=== PATIENT | female | born 1985 | race Caucasian/White ===

== ENCOUNTER 2021-01-10 10:37 | Inpatient (IN) | payer OTHER ==
[2021-01-10] MEDS ORDERED: ACETAMINOPHEN 1000 MG/100 ML VIAL (NON FORMULARY) IVPB ONE (11:48)
[2021-01-10] MEDS ORDERED: SODIUM CHLORIDE 0.9% 1000 ML INFUS.BAG IV ONE ×2 (11:48→13:56)
[2021-01-10 12:24] LABS: BASO % 0.5 % (0-2.0); HEMATOCRIT 37.9 % (32.4-45.2); HEMOGLOBIN 13.1 GM/dL (10.7-15.3); LYMPH % 3.2 % (8-40); MCHC 34.4 g/dl (32.0-36.0); MEAN CELL VOLUME 84.3 fl (80-96); MEAN PLT VOLUME 8.4 fl (7.5-11.1); MONO % 4.3 % (3.8-10.2); PLATELET COUNT 269 K/MM3 (134-434); RDW 13.3 % (11.6-15.6); WHITE BLOOD COUNT 24.4 K/mm3 (4.0-10.0)
[2021-01-10 12:27] LABS: EPI CELLS 25 /uL (0-25.1); HYALINE CASTS 6 /uL (0-3.1); PH,URINE 7.5 (5.0-8.0); URINE APPEARANCE CLOUDY; URINE BACTERIA >9,000 /uL (0-1359); URINE BILIRUBIN NEGATIVE (NEGATIVE); URINE COLOR YELLOW; URINE GLUCOSE (UA) NEGATIVE (NEGATIVE); URINE KETONE TRACE (NEGATIVE); URINE LEUK ESTERASE NEGATIVE (NEGATIVE); URINE NITRITE POSITIVE (NEGATIVE); URINE PROTEIN 2+ (NEGATIVE); URINE RBC 180 /uL (0-23.9); URINE UROBILINOGEN 0.2 mg/dL (0.2-1.0)
[2021-01-10 12:37] LABS: INR 1.03 (0.83-1.09); PROTHROMBIN TIME (PATIENT) 12.5 SEC (9.7-13.0)
[2021-01-10 12:40] LABS: ACTIVATED PTT 30.7 SECONDS (25.2-36.5)
[2021-01-10 12:44] LABS: ALBUMIN 3.6 g/dl (3.4-5.0); CALCIUM 9.4 mg/dL (8.5-10.1)
[2021-01-10 12:45] LABS: BLOOD UREA NITROGEN 10.8 mg/dL (7-18)
[2021-01-10 12:48] LABS: CREATININE 0.9 mg/dL (0.55-1.3)
[2021-01-10 12:49] LABS: BILIRUBIN,TOTAL 0.7 mg/dL (0.2-1); TOT PROT 7.5 g/dl (6.4-8.2)
[2021-01-10] MEDS ORDERED: ACETAMINOPHEN INJECTION 100 ML IVPB ONE (13:26)
[2021-01-10 13:31] LABS: URINE WBC 668.8 /uL (0-25.8)
[2021-01-10] MEDS ORDERED: CEFTRIAXONE 1,000 MG in DEXTROSE 5%-WATER - 50 ML IVPB ONE (13:47)
[2021-01-10] MEDS ORDERED: CEFTRIAXONE 1 GM/50 ML BAG ONE (15:02)
[2021-01-10 15:51] LABS: ANISOCYTOSIS 0; MACROCYTOSIS 0; PLATELET ESTIMATE NORMAL
[2021-01-10 18:57] LABS: LACTIC ACID 2.2 mmol/L (0.4-2.0)
[2021-01-10] MEDS: SODIUM CHLORIDE 1,000 ML IV SCH (20:15)
[2021-01-11] MEDS: HEPARIN NA (PORCINE) 5,000 UNITS/ML 1ML VIAL SQ SCH ×3 (01:15→14:25)
[2021-01-11 08:43] LABS: BASO % 0.2 % (0-2.0); HEMATOCRIT 36.5 % (32.4-45.2); HEMOGLOBIN 12.6 GM/dL (10.7-15.3); LYMPH % 7.4 % (8-40); MCHC 34.5 g/dl (32.0-36.0); MEAN CELL VOLUME 84.1 fl (80-96); MEAN PLT VOLUME 8.4 fl (7.5-11.1); MONO % 5.2 % (3.8-10.2); NEUT % 87.2 % (42.8-82.8); PLATELET COUNT 262 K/MM3 (134-434); RBC 4.33 M/mm3 (3.60-5.2); WHITE BLOOD COUNT 20.8 K/mm3 (4.0-10.0)
[2021-01-11 08:58] LABS: ALBUMIN 3.4 g/dl (3.4-5.0); BLOOD UREA NITROGEN 10.5 mg/dL (7-18); CALCIUM 8.6 mg/dL (8.5-10.1); MAGNESIUM 2.1 mg/dL (1.8-2.4)
[2021-01-11 09:02] LABS: CREATININE 0.6 mg/dL (0.55-1.3); PHOSPHOROUS 2.4 mg/dL (2.5-4.9)
[2021-01-11 09:03] LABS: BILIRUBIN,TOTAL 0.4 mg/dL (0.2-1); TOT PROT 7.1 g/dl (6.4-8.2)
[2021-01-11] MEDS ORDERED: cefTRIAXone SODIUM 1 GM VIAL ONE (09:42)
[2021-01-11] MEDS ORDERED: DEXTROSE 5%-WATER - 50 ML IVPB ONE (09:42)
[2021-01-11] MEDS ORDERED: LOSARTAN POTASSIUM 25 MG TABLET PO SCH (10:00)
[2021-01-11] MEDS: CEFTRIAXONE 1 GM in DEXTROSE 5%-WATER - 50 ML IVPB SCH (10:06)
[2021-01-11] MEDS: INSULIN SLIDING SCALE (NOVOLOG) 1 VIAL SQ SCH ×3 (11:36→21:21)
[2021-01-11 11:39] LABS: ANISOCYTOSIS 0; MACROCYTOSIS 0; PLATELET ESTIMATE NORMAL
[2021-01-11] MEDS: SODIUM CHLORIDE 1,000 ML IV SCH ×2 (14:26→16:17)
[2021-01-11] MEDS ORDERED: INSULIN (NOVOLOG) ASPART 100 UNITS/ML 10ML VIAL ONE (21:02)
[2021-01-12] MEDS: INSULIN SLIDING SCALE (NOVOLOG) 1 VIAL SQ SCH ×4 (06:08→21:20)
[2021-01-12] MEDS ORDERED: TAMSULOSIN HCL 0.4 MG CAP PO SCH (08:30)
[2021-01-12] MEDS: INSULIN (LEVEMIR) 100 UNITS/ML UNITS SQ SCH ×2 (08:43→21:16)
[2021-01-12] MEDS: TAMSULOSIN HCL 0.4 MG CAP PO SCH (08:44)
[2021-01-12 09:06] LABS: HEMATOCRIT 35.1 % (32.4-45.2); HEMOGLOBIN 12.2 GM/dL (10.7-15.3); MCH 29.7 pg (25.7-33.7); MCHC 34.6 g/dl (32.0-36.0); MEAN CELL VOLUME 85.9 fl (80-96); MEAN PLT VOLUME 8.4 fl (7.5-11.1); PLATELET COUNT 237 K/MM3 (134-434); RBC 4.09 M/mm3 (3.60-5.2); RDW 13.1 % (11.6-15.6); WHITE BLOOD COUNT 10.7 K/mm3 (4.0-10.0)
[2021-01-12 09:42] LABS: BILIRUBIN,TOTAL 0.2 mg/dL (0.2-1)
[2021-01-12 09:44] LABS: TOT PROT 6.6 g/dl (6.4-8.2)
[2021-01-12 10:07] LABS: CREATININE 0.5 mg/dL (0.55-1.3)
[2021-01-12] MEDS ORDERED: DEXTROSE 5%-WATER - 50 ML IVPB ONE (10:16)
[2021-01-12] MEDS ORDERED: cefTRIAXone SODIUM 1 GM VIAL ONE (10:16)
[2021-01-12 10:24] LABS: BLOOD UREA NITROGEN 10.5 mg/dL (7-18); CALCIUM 8.4 mg/dL (8.5-10.1)
[2021-01-12 10:26] LABS: PHOSPHOROUS 2.4 mg/dL (2.5-4.9)
[2021-01-12 10:28] LABS: MAGNESIUM 2.1 mg/dL (1.8-2.4)
[2021-01-12] MEDS: ENOXAPARIN NA (PORCINE) 40 MG/0.4 ML DISP.SYRIN SQ SCH (10:29)
[2021-01-12] MEDS: LOSARTAN POTASSIUM 50 MG TABLET PO SCH (10:29)
[2021-01-12] MEDS: ATORVASTATIN CA 10 MG TABLET (FP) PO SCH (10:29)
[2021-01-12] MEDS: amLODIPine BESYLATE 10 MG TABLET (FP) PO SCH (10:29)
[2021-01-12] MEDS: CEFTRIAXONE 1 GM in DEXTROSE 5%-WATER - 50 ML IVPB SCH (10:30)
[2021-01-13] MEDS: INSULIN (LEVEMIR) 100 UNITS/ML UNITS SQ SCH ×2 (06:20→21:48)
[2021-01-13] MEDS: INSULIN SLIDING SCALE (NOVOLOG) 1 VIAL SQ SCH ×4 (06:23→21:47)
[2021-01-13] MEDS ORDERED: DEXTROSE 5%-WATER - 50 ML IVPB ONE (09:04)
[2021-01-13] MEDS ORDERED: cefTRIAXone SODIUM 1 GM VIAL ONE (09:04)
[2021-01-13] MEDS: ATORVASTATIN CA 10 MG TABLET (FP) PO SCH (09:09)
[2021-01-13] MEDS: ENOXAPARIN NA (PORCINE) 40 MG/0.4 ML DISP.SYRIN SQ SCH (09:09)
[2021-01-13] MEDS: amLODIPine BESYLATE 10 MG TABLET (FP) PO SCH (09:09)
[2021-01-13] MEDS: CEFTRIAXONE 1 GM in DEXTROSE 5%-WATER - 50 ML IVPB SCH (09:09)
[2021-01-13] MEDS: LOSARTAN POTASSIUM 50 MG TABLET PO SCH (09:09)
[2021-01-13] MEDS: TAMSULOSIN HCL 0.4 MG CAP PO SCH (09:09)
[2021-01-13 09:55] LABS: HEMATOCRIT 42.1 % (32.4-45.2); HEMOGLOBIN 14.4 GM/dL (10.7-15.3); MCHC 34.1 g/dl (32.0-36.0); MEAN CELL VOLUME 84.9 fl (80-96); PLATELET COUNT 324 K/MM3 (134-434); RBC 4.97 M/mm3 (3.60-5.2); RDW 13.2 % (11.6-15.6); WHITE BLOOD COUNT 12.9 K/mm3 (4.0-10.0)
[2021-01-13 10:05] LABS: CALCIUM 9.1 mg/dL (8.5-10.1)
[2021-01-13 10:06] LABS: BLOOD UREA NITROGEN 12.8 mg/dL (7-18); MAGNESIUM 2.1 mg/dL (1.8-2.4)
[2021-01-13 10:09] LABS: PHOSPHOROUS 3.8 mg/dL (2.5-4.9)
[2021-01-13 10:10] LABS: CREATININE 0.8 mg/dL (0.55-1.3)
[2021-01-13] MEDS ORDERED: SODIUM CHLORIDE 1,000 ML IV SCH (11:45)
[2021-01-14] MEDS: INSULIN (LEVEMIR) 100 UNITS/ML UNITS SQ SCH ×2 (06:41→21:29)
[2021-01-14] MEDS: INSULIN SLIDING SCALE (NOVOLOG) 1 VIAL SQ SCH ×4 (06:41→21:30)
[2021-01-14] MEDS: TAMSULOSIN HCL 0.4 MG CAP PO SCH (08:22)
[2021-01-14] MEDS ORDERED: cefTRIAXone SODIUM 1 GM VIAL ONE (09:00)
[2021-01-14] MEDS ORDERED: DEXTROSE 5%-WATER - 50 ML IVPB ONE (09:00)
[2021-01-14 09:15] LABS: HEMATOCRIT 38.9 % (32.4-45.2); HEMOGLOBIN 13.3 GM/dL (10.7-15.3); MCH 28.6 pg (25.7-33.7); MCHC 34.1 g/dl (32.0-36.0); MEAN PLT VOLUME 7.9 fl (7.5-11.1); PLATELET COUNT 307 K/MM3 (134-434); RBC 4.63 M/mm3 (3.60-5.2); RDW 12.9 % (11.6-15.6); WHITE BLOOD COUNT 11.4 K/mm3 (4.0-10.0)
[2021-01-14] MEDS: CEFTRIAXONE 1 GM in DEXTROSE 5%-WATER - 50 ML IVPB SCH (09:22)
[2021-01-14] MEDS: ENOXAPARIN NA (PORCINE) 40 MG/0.4 ML DISP.SYRIN SQ SCH (09:22)
[2021-01-14] MEDS: LOSARTAN POTASSIUM 50 MG TABLET PO SCH (09:22)
[2021-01-14] MEDS: amLODIPine BESYLATE 10 MG TABLET (FP) PO SCH (09:22)
[2021-01-14 09:36] LABS: CALCIUM 8.8 mg/dL (8.5-10.1)
[2021-01-14 09:37] LABS: BLOOD UREA NITROGEN 13.2 mg/dL (7-18)
[2021-01-14 09:38] LABS: MAGNESIUM 1.9 mg/dL (1.8-2.4)
[2021-01-14 09:39] LABS: CREATININE 0.7 mg/dL (0.55-1.3); PHOSPHOROUS 3.5 mg/dL (2.5-4.9)
[2021-01-14] MEDS ORDERED: ACETAMINOPHEN 325 MG TABLET (FP) PO PRN (09:59)
[2021-01-14] MEDS ORDERED: INSULIN (NOVOLOG) ASPART 100 UNITS/ML 10ML VIAL ONE ×2 (11:22→21:03)
[2021-01-14] MEDS ORDERED: ACETAMINOPHEN 1000 MG/100 ML VIAL (NON FORMULARY) IVPB ONE (19:53)
[2021-01-14] MEDS ORDERED: HYDROCHLOROTHIAZIDE 25 MG TABLET (FP) PO ONE (20:12)
[2021-01-14] MEDS ORDERED: ONDANSETRON 4 MG/2 ML VIAL IVPUSH PRN (21:17)
[2021-01-14] MEDS: ATORVASTATIN CA 10 MG TABLET (FP) PO SCH (21:30)
[2021-01-15] MEDS: INSULIN SLIDING SCALE (NOVOLOG) 1 VIAL SQ SCH ×4 (06:20→22:57)
[2021-01-15] MEDS: INSULIN (LEVEMIR) 100 UNITS/ML UNITS SQ SCH ×2 (06:20→22:57)
[2021-01-15] MEDS: TAMSULOSIN HCL 0.4 MG CAP PO SCH (08:02)
[2021-01-15] MEDS ORDERED: ACETAMINOPHEN 325 MG TABLET (FP) PO PRN (08:12)
[2021-01-15] MEDS ORDERED: SODIUM CHLORIDE 1,000 ML IV SCH (08:30)
[2021-01-15 09:27] LABS: BASO % 0.4 % (0-2.0); EOS % 0.9 % (0-4.5); HEMATOCRIT 40.2 % (32.4-45.2); HEMOGLOBIN 13.9 GM/dL (10.7-15.3); LYMPH % 17.9 % (8-40); MCH 29.3 pg (25.7-33.7); MCHC 34.5 g/dl (32.0-36.0); MEAN CELL VOLUME 84.9 fl (80-96); MEAN PLT VOLUME 8.3 fl (7.5-11.1); MONO % 5.1 % (3.8-10.2); NEUT % 75.7 % (42.8-82.8); PLATELET COUNT 287 K/MM3 (134-434); RBC 4.73 M/mm3 (3.60-5.2); RDW 13.3 % (11.6-15.6); WHITE BLOOD COUNT 15.1 K/mm3 (4.0-10.0)
[2021-01-15] MEDS ORDERED: DEXTROSE 5%-WATER - 50 ML IVPB ONE (09:51)
[2021-01-15] MEDS ORDERED: cefTRIAXone SODIUM 1 GM VIAL ONE (09:51)
[2021-01-15] MEDS: amLODIPine BESYLATE 10 MG TABLET (FP) PO SCH (09:56)
[2021-01-15] MEDS: CEFTRIAXONE 1 GM in DEXTROSE 5%-WATER - 50 ML IVPB SCH (09:56)
[2021-01-15] MEDS: ENOXAPARIN NA (PORCINE) 40 MG/0.4 ML DISP.SYRIN SQ SCH (09:56)
[2021-01-15] MEDS: LOSARTAN POTASSIUM 50 MG TABLET PO SCH (09:56)
[2021-01-15 10:05] LABS: ALBUMIN 3.6 g/dl (3.4-5.0); BILIRUBIN,TOTAL 0.8 mg/dL (0.2-1); BLOOD UREA NITROGEN 13.4 mg/dL (7-18); CREATININE 0.8 mg/dL (0.55-1.3); PHOSPHOROUS 3.6 mg/dL (2.5-4.9); TOT PROT 7.8 g/dl (6.4-8.2)
[2021-01-15] MEDS ORDERED: POTASSIUM CHLORIDE TABS 20 MEQ TABLET.ER (FP) PO ONE (10:08)
[2021-01-15] MEDS: KCL 10 MEQ IVPB 10 MEQ/100 ML INFUS.BAG IVPB SCH ×2 (10:19→11:56)
[2021-01-15 11:12] LABS: EPI CELLS 25 /uL (0-25.1); HYALINE CASTS 1 /uL (0-3.1); PH,URINE 5.5 (5.0-8.0); URINE APPEARANCE CLEAR; URINE BACTERIA 47 /uL (0-1359); URINE BILIRUBIN NEGATIVE (NEGATIVE); URINE COLOR YELLOW; URINE GLUCOSE (UA) 1+ (NEGATIVE); URINE KETONE NEGATIVE (NEGATIVE); URINE LEUK ESTERASE TRACE (NEGATIVE); URINE NITRITE NEGATIVE (NEGATIVE); URINE PROTEIN TRACE (NEGATIVE); URINE RBC 73 /uL (0-23.9); URINE WBC 41 /uL (0-25.8)
[2021-01-15] MEDS: ERTAPENEM SODIUM 1 GM in SODIUM CHLORIDE 50 ML IVPB SCH (11:56)
[2021-01-15] MEDS: ATORVASTATIN CA 10 MG TABLET (FP) PO SCH (22:57)
[2021-01-16] MEDS ORDERED: ACETAMINOPHEN 1000 MG/100 ML VIAL (NON FORMULARY) IVPB ONE (01:54)
[2021-01-16] MEDS: INSULIN (LEVEMIR) 100 UNITS/ML UNITS SQ SCH ×2 (06:34→21:28)
[2021-01-16] MEDS: INSULIN SLIDING SCALE (NOVOLOG) 1 VIAL SQ SCH ×4 (06:35→21:27)
[2021-01-16 07:55] LABS: HEMATOCRIT 37.2 % (32.4-45.2); MCH 29.6 pg (25.7-33.7); MCHC 34.8 g/dl (32.0-36.0); MEAN PLT VOLUME 7.9 fl (7.5-11.1); PLATELET COUNT 274 K/MM3 (134-434); RBC 4.38 M/mm3 (3.60-5.2); RDW 12.9 % (11.6-15.6); WHITE BLOOD COUNT 13.2 K/mm3 (4.0-10.0)
[2021-01-16 08:19] LABS: CALCIUM 8.9 mg/dL (8.5-10.1)
[2021-01-16 08:20] LABS: ALBUMIN 3.5 g/dl (3.4-5.0); BLOOD UREA NITROGEN 12.8 mg/dL (7-18); MAGNESIUM 2.1 mg/dL (1.8-2.4)
[2021-01-16 08:23] LABS: CREATININE 0.7 mg/dL (0.55-1.3); PHOSPHOROUS 3.6 mg/dL (2.5-4.9)
[2021-01-16 08:25] LABS: BILIRUBIN,TOTAL 1.6 mg/dL (0.2-1); TOT PROT 7.4 g/dl (6.4-8.2)
[2021-01-16] MEDS ORDERED: PT OWN MED DRAWER 7, Y5N ONE (09:31)
[2021-01-16] MEDS: ENOXAPARIN NA (PORCINE) 40 MG/0.4 ML DISP.SYRIN SQ SCH (09:34)
[2021-01-16] MEDS: ERTAPENEM SODIUM 1 GM in SODIUM CHLORIDE 50 ML IVPB SCH (09:34)
[2021-01-16] MEDS: TAMSULOSIN HCL 0.4 MG CAP PO SCH (09:35)
[2021-01-16] MEDS: amLODIPine BESYLATE 10 MG TABLET (FP) PO SCH (09:35)
[2021-01-16] MEDS: LOSARTAN POTASSIUM 50 MG TABLET PO SCH (09:35)
[2021-01-16] MEDS ORDERED: INSULIN (NOVOLOG) ASPART 100 UNITS/ML 10ML VIAL ONE (11:50)
[2021-01-16] MEDS ORDERED: ONDANSETRON 4 MG/2 ML VIAL IVPUSH ONE (20:26)
[2021-01-16] MEDS: ATORVASTATIN CA 10 MG TABLET (FP) PO SCH (21:28)
[2021-01-17] MEDS: INSULIN SLIDING SCALE (NOVOLOG) 1 VIAL SQ SCH ×3 (06:13→21:39)
[2021-01-17] MEDS: TAMSULOSIN HCL 0.4 MG CAP PO SCH (08:07)
[2021-01-17 08:45] LABS: HEMATOCRIT 36.1 % (32.4-45.2); HEMOGLOBIN 12.4 GM/dL (10.7-15.3); MCH 29.1 pg (25.7-33.7); MCHC 34.5 g/dl (32.0-36.0); MEAN CELL VOLUME 84.3 fl (80-96); MEAN PLT VOLUME 7.9 fl (7.5-11.1); PLATELET COUNT 293 K/MM3 (134-434); RBC 4.28 M/mm3 (3.60-5.2); RDW 12.9 % (11.6-15.6); WHITE BLOOD COUNT 11.7 K/mm3 (4.0-10.0)
[2021-01-17 09:08] LABS: ALBUMIN 3.4 g/dl (3.4-5.0); CALCIUM 8.8 mg/dL (8.5-10.1)
[2021-01-17 09:10] LABS: BLOOD UREA NITROGEN 11.8 mg/dL (7-18); MAGNESIUM 1.9 mg/dL (1.8-2.4)
[2021-01-17 09:12] LABS: CREATININE 0.7 mg/dL (0.55-1.3)
[2021-01-17 09:14] LABS: BILIRUBIN,TOTAL 0.6 mg/dL (0.2-1); TOT PROT 7.1 g/dl (6.4-8.2)
[2021-01-17] MEDS: amLODIPine BESYLATE 10 MG TABLET (FP) PO SCH (09:15)
[2021-01-17] MEDS: LOSARTAN POTASSIUM 50 MG TABLET PO SCH (09:15)
[2021-01-17] MEDS ORDERED: PROPOFOL 20 ML ONE (10:21)
[2021-01-17] MEDS ORDERED: MIDAZOLAM HCL 2 MG/2 ML SINGLE DOSE VIAL ONE (10:21)
[2021-01-17] MEDS ORDERED: GENTAMICIN 80MG PREMIX BAG IVPB ONE (10:34)
[2021-01-17] MEDS ORDERED: GENTAMICIN SO4 80 MG/2 ML VIAL ONE (10:39)
[2021-01-17] MEDS ORDERED: LACTATED RINGERS SOLUTION 1,000 ML IV SCH (11:30)
[2021-01-17] MEDS ORDERED: SENNOSIDES 8.6MG TABLET (FP) PO PRN (15:37)
[2021-01-17] MEDS ORDERED: POLYETHYLENE GLYCOL 3350 119 GM BTL PO SCH (15:45)
[2021-01-17] MEDS ORDERED: oxyCODONE HCL 5 MG TABLET PO ONE (19:33)
[2021-01-17] MEDS: ACETAMINOPHEN 325 MG TABLET (FP) PO PRN (20:31)
[2021-01-17] MEDS: ATORVASTATIN CA 10 MG TABLET (FP) PO SCH (21:39)
[2021-01-17] MEDS: INSULIN (LEVEMIR) 100 UNITS/ML UNITS SQ SCH (21:39)
[2021-01-18] MEDS: ACETAMINOPHEN 325 MG TABLET (FP) PO PRN (02:32)
[2021-01-18] MEDS: INSULIN (LEVEMIR) 100 UNITS/ML UNITS SQ SCH ×2 (06:17→21:55)
[2021-01-18] MEDS: INSULIN SLIDING SCALE (NOVOLOG) 1 VIAL SQ SCH ×4 (06:18→21:55)
[2021-01-18] MEDS: TAMSULOSIN HCL 0.4 MG CAP PO SCH (08:01)
[2021-01-18] MEDS ORDERED: LACTULOSE 20 GM/30 ML UDC (FOR ORAL USE ONLY) PO ONE (08:29)
[2021-01-18 08:38] LABS: HEMOGLOBIN 12.1 GM/dL (10.7-15.3); MCH 28.6 pg (25.7-33.7); MCHC 33.7 g/dl (32.0-36.0); MEAN CELL VOLUME 84.8 fl (80-96); MEAN PLT VOLUME 8.3 fl (7.5-11.1); PLATELET COUNT 326 K/MM3 (134-434); RBC 4.24 M/mm3 (3.60-5.2); RDW 13.1 % (11.6-15.6); WHITE BLOOD COUNT 14.7 K/mm3 (4.0-10.0)
[2021-01-18] MEDS: ERTAPENEM SODIUM 1 GM in SODIUM CHLORIDE 50 ML IVPB SCH (09:40)
[2021-01-18] MEDS: LOSARTAN POTASSIUM 50 MG TABLET PO SCH (09:41)
[2021-01-18] MEDS: amLODIPine BESYLATE 10 MG TABLET (FP) PO SCH (09:41)
[2021-01-18 09:47] LABS: CALCIUM 9.1 mg/dL (8.5-10.1)
[2021-01-18 09:49] LABS: ALBUMIN 3.6 g/dl (3.4-5.0); BLOOD UREA NITROGEN 14.3 mg/dL (7-18); MAGNESIUM 2.2 mg/dL (1.8-2.4)
[2021-01-18 09:51] LABS: CREATININE 0.6 mg/dL (0.55-1.3); PHOSPHOROUS 3.4 mg/dL (2.5-4.9)
[2021-01-18 09:53] LABS: BILIRUBIN,TOTAL 0.8 mg/dL (0.2-1)
[2021-01-18 09:54] LABS: TOT PROT 7.5 g/dl (6.4-8.2)
[2021-01-18] MEDS ORDERED: NAPH,MB-DB/K PH,MBDB POWDER PACKET PO ONE (11:02)
[2021-01-18] MEDS: traMADol HCL 50 MG TABLET PO PRN (11:51)
[2021-01-18] MEDS: ATORVASTATIN CA 10 MG TABLET (FP) PO SCH (21:59)
[2021-01-19] MEDS: INSULIN SLIDING SCALE (NOVOLOG) 1 VIAL SQ SCH ×4 (06:22→21:01)
[2021-01-19] MEDS: INSULIN (LEVEMIR) 100 UNITS/ML UNITS SQ SCH ×2 (06:23→21:01)
[2021-01-19] MEDS: traMADol HCL 50 MG TABLET PO PRN ×2 (06:30→21:00)
[2021-01-19] MEDS ORDERED: INSULIN (NOVOLOG) ASPART 100 UNITS/ML 10ML VIAL ONE ×2 (06:49→11:00)
[2021-01-19 08:35] LABS: HEMATOCRIT 35.4 % (32.4-45.2); HEMOGLOBIN 11.9 GM/dL (10.7-15.3); MCH 29.1 pg (25.7-33.7); MCHC 33.6 g/dl (32.0-36.0); MEAN CELL VOLUME 86.6 fl (80-96); MEAN PLT VOLUME 9.2 fl (7.5-11.1); PLATELET COUNT 279 K/MM3 (134-434); RBC 4.09 M/mm3 (3.60-5.2); WHITE BLOOD COUNT 11.7 K/mm3 (4.0-10.0)
[2021-01-19] MEDS: TAMSULOSIN HCL 0.4 MG CAP PO SCH (08:42)
[2021-01-19 09:10] LABS: BLOOD UREA NITROGEN 12.2 mg/dL (7-18); CALCIUM 8.7 mg/dL (8.5-10.1)
[2021-01-19 09:12] LABS: MAGNESIUM 2.1 mg/dL (1.8-2.4)
[2021-01-19 09:14] LABS: CREATININE 0.6 mg/dL (0.55-1.3); PHOSPHOROUS 3.4 mg/dL (2.5-4.9)
[2021-01-19] MEDS: LOSARTAN POTASSIUM 50 MG TABLET PO SCH (10:49)
[2021-01-19] MEDS: amLODIPine BESYLATE 10 MG TABLET (FP) PO SCH (10:49)
[2021-01-19] MEDS ORDERED: PT OWN MED DRAWER 7, Y5N ONE (11:00)
[2021-01-19] MEDS: ERTAPENEM SODIUM 1 GM in SODIUM CHLORIDE 50 ML IVPB SCH (11:03)
[2021-01-19] MEDS: ATORVASTATIN CA 10 MG TABLET (FP) PO SCH (21:01)
[2021-01-20] MEDS: INSULIN (LEVEMIR) 100 UNITS/ML UNITS SQ SCH ×2 (06:02→21:12)
[2021-01-20] MEDS: INSULIN SLIDING SCALE (NOVOLOG) 1 VIAL SQ SCH ×4 (06:02→21:13)
[2021-01-20 08:34] LABS: HEMATOCRIT 36.7 % (32.4-45.2); HEMOGLOBIN 12.7 GM/dL (10.7-15.3); MCH 29.2 pg (25.7-33.7); MCHC 34.6 g/dl (32.0-36.0); MEAN CELL VOLUME 84.4 fl (80-96); PLATELET COUNT 323 K/MM3 (134-434); RBC 4.36 M/mm3 (3.60-5.2); RDW 12.9 % (11.6-15.6); WHITE BLOOD COUNT 8.3 K/mm3 (4.0-10.0)
[2021-01-20 08:51] LABS: BLOOD UREA NITROGEN 8.4 mg/dL (7-18); CALCIUM 8.8 mg/dL (8.5-10.1)
[2021-01-20 08:52] LABS: MAGNESIUM 1.9 mg/dL (1.8-2.4)
[2021-01-20 08:55] LABS: CREATININE 0.6 mg/dL (0.55-1.3); PHOSPHOROUS 3.6 mg/dL (2.5-4.9)
[2021-01-20] MEDS ORDERED: PT OWN MED DRAWER 7, Y5N ONE (09:41)
[2021-01-20] MEDS: ERTAPENEM SODIUM 1 GM in SODIUM CHLORIDE 50 ML IVPB SCH (09:47)
[2021-01-20] MEDS: amLODIPine BESYLATE 10 MG TABLET (FP) PO SCH (09:47)
[2021-01-20] MEDS: LOSARTAN POTASSIUM 50 MG TABLET PO SCH (09:47)
[2021-01-20] MEDS: TAMSULOSIN HCL 0.4 MG CAP PO SCH (09:47)
[2021-01-20] MEDS: ATORVASTATIN CA 10 MG TABLET (FP) PO SCH (21:12)
[2021-01-21] MEDS: INSULIN SLIDING SCALE (NOVOLOG) 1 VIAL SQ SCH ×4 (06:31→21:55)
[2021-01-21] MEDS: INSULIN (LEVEMIR) 100 UNITS/ML UNITS SQ SCH ×2 (06:32→21:55)
[2021-01-21 08:17] LABS: BASO % 0.8 % (0-2.0); EOS % 1.3 % (0-4.5); HEMATOCRIT 38.7 % (32.4-45.2); HEMOGLOBIN 13.4 GM/dL (10.7-15.3); LYMPH % 37.4 % (8-40); MCH 29.4 pg (25.7-33.7); MCHC 34.5 g/dl (32.0-36.0); MEAN CELL VOLUME 85.1 fl (80-96); MONO % 6.4 % (3.8-10.2); NEUT % 54.1 % (42.8-82.8); PLATELET COUNT 359 K/MM3 (134-434); RBC 4.55 M/mm3 (3.60-5.2); WHITE BLOOD COUNT 9.9 K/mm3 (4.0-10.0)
[2021-01-21] MEDS: TAMSULOSIN HCL 0.4 MG CAP PO SCH (08:29)
[2021-01-21 08:58] LABS: CALCIUM 8.9 mg/dL (8.5-10.1)
[2021-01-21 08:59] LABS: BLOOD UREA NITROGEN 9.5 mg/dL (7-18); MAGNESIUM 2.1 mg/dL (1.8-2.4)
[2021-01-21 09:02] LABS: CREATININE 0.8 mg/dL (0.55-1.3)
[2021-01-21] MEDS ORDERED: PT OWN MED DRAWER 7, Y5N ONE (09:21)
[2021-01-21] MEDS: LOSARTAN POTASSIUM 50 MG TABLET PO SCH (09:29)
[2021-01-21] MEDS: ERTAPENEM SODIUM 1 GM in SODIUM CHLORIDE 50 ML IVPB SCH (09:29)
[2021-01-21] MEDS: amLODIPine BESYLATE 10 MG TABLET (FP) PO SCH (09:29)
[2021-01-21 15:19] VITALS: BMI 31.1
[2021-01-21] MEDS: ATORVASTATIN CA 10 MG TABLET (FP) PO SCH (21:55)
[2021-01-22] MEDS: INSULIN SLIDING SCALE (NOVOLOG) 1 VIAL SQ SCH ×4 (06:10→21:43)
[2021-01-22] MEDS: INSULIN (LEVEMIR) 100 UNITS/ML UNITS SQ SCH ×2 (06:33→21:43)
[2021-01-22] MEDS: TAMSULOSIN HCL 0.4 MG CAP PO SCH (08:05)
[2021-01-22 08:45] LABS: HEMATOCRIT 37.1 % (32.4-45.2); HEMOGLOBIN 12.8 GM/dL (10.7-15.3); MCHC 34.5 g/dl (32.0-36.0); MEAN CELL VOLUME 84.1 fl (80-96); MEAN PLT VOLUME 7.8 fl (7.5-11.1); PLATELET COUNT 370 K/MM3 (134-434); RBC 4.42 M/mm3 (3.60-5.2); RDW 12.7 % (11.6-15.6)
[2021-01-22 09:19] LABS: BLOOD UREA NITROGEN 8.9 mg/dL (7-18); CALCIUM 8.7 mg/dL (8.5-10.1); CREATININE 0.6 mg/dL (0.55-1.3); PHOSPHOROUS 3.4 mg/dL (2.5-4.9)
[2021-01-22 09:20] LABS: MAGNESIUM 2.2 mg/dL (1.8-2.4)
[2021-01-22] MEDS ORDERED: PT OWN MED DRAWER 7, Y5N ONE (09:28)
[2021-01-22] MEDS: amLODIPine BESYLATE 10 MG TABLET (FP) PO SCH (09:33)
[2021-01-22] MEDS: ERTAPENEM SODIUM 1 GM in SODIUM CHLORIDE 50 ML IVPB SCH (09:33)
[2021-01-22] MEDS: LOSARTAN POTASSIUM 50 MG TABLET PO SCH (09:33)
[2021-01-22 16:18] LABS: EPI CELLS 15 /uL (0-25.1); HYALINE CASTS 0 /uL (0-3.1); PH,URINE 6.5 (5.0-8.0); URINE APPEARANCE CLEAR; URINE BACTERIA 78 /uL (0-1359); URINE BILIRUBIN NEGATIVE (NEGATIVE); URINE COLOR YELLOW; URINE GLUCOSE (UA) NEGATIVE (NEGATIVE); URINE KETONE NEGATIVE (NEGATIVE); URINE LEUK ESTERASE 1+ (NEGATIVE); URINE NITRITE NEGATIVE (NEGATIVE); URINE PROTEIN TRACE (NEGATIVE); URINE RBC 305 /uL (0-23.9); URINE WBC 54 /uL (0-25.8)
[2021-01-22] MEDS: ENOXAPARIN NA (PORCINE) 40 MG/0.4 ML DISP.SYRIN SQ SCH (17:06)
[2021-01-22] MEDS: ATORVASTATIN CA 10 MG TABLET (FP) PO SCH (21:43)
[2021-01-23] MEDS: INSULIN SLIDING SCALE (NOVOLOG) 1 VIAL SQ SCH ×4 (06:48→21:31)
[2021-01-23] MEDS: INSULIN (LEVEMIR) 100 UNITS/ML UNITS SQ SCH ×2 (06:49→21:30)
[2021-01-23] MEDS ORDERED: INSULIN (NOVOLOG) ASPART 100 UNITS/ML 10ML VIAL ONE (07:38)
[2021-01-23] MEDS ORDERED: PT OWN MED DRAWER 7, Y5N ONE (09:27)
[2021-01-23] MEDS: ENOXAPARIN NA (PORCINE) 40 MG/0.4 ML DISP.SYRIN SQ SCH (09:29)
[2021-01-23] MEDS: amLODIPine BESYLATE 10 MG TABLET (FP) PO SCH (09:29)
[2021-01-23] MEDS: TAMSULOSIN HCL 0.4 MG CAP PO SCH (09:29)
[2021-01-23] MEDS: LOSARTAN POTASSIUM 50 MG TABLET PO SCH (09:29)
[2021-01-23] MEDS: ERTAPENEM SODIUM 1 GM in SODIUM CHLORIDE 50 ML IVPB SCH (09:29)
[2021-01-23 13:58] LABS: BASO % 0.5 % (0-2.0); EOS % 2.1 % (0-4.5); HEMATOCRIT 38.4 % (32.4-45.2); LYMPH % 34.3 % (8-40); MCH 28.7 pg (25.7-33.7); MCHC 33.8 g/dl (32.0-36.0); MEAN PLT VOLUME 8.2 fl (7.5-11.1); MONO % 5.2 % (3.8-10.2); NEUT % 57.9 % (42.8-82.8); PLATELET COUNT 367 K/MM3 (134-434); RBC 4.52 M/mm3 (3.60-5.2); RDW 12.8 % (11.6-15.6); WHITE BLOOD COUNT 12.4 K/mm3 (4.0-10.0)
[2021-01-23] MEDS: ATORVASTATIN CA 10 MG TABLET (FP) PO SCH (21:30)
[2021-01-24] MEDS: INSULIN (LEVEMIR) 100 UNITS/ML UNITS SQ SCH (06:08)
[2021-01-24] MEDS: INSULIN SLIDING SCALE (NOVOLOG) 1 VIAL SQ SCH ×2 (06:08→12:05)
[2021-01-24 08:27] LABS: BASO % 0.6 % (0-2.0); EOS % 1.7 % (0-4.5); HEMATOCRIT 36.9 % (32.4-45.2); HEMOGLOBIN 12.5 GM/dL (10.7-15.3); LYMPH % 29.3 % (8-40); MEAN CELL VOLUME 85.3 fl (80-96); MEAN PLT VOLUME 8.4 fl (7.5-11.1); MONO % 6.2 % (3.8-10.2); NEUT % 62.2 % (42.8-82.8); PLATELET COUNT 337 K/MM3 (134-434); RBC 4.32 M/mm3 (3.60-5.2); RDW 13.1 % (11.6-15.6); WHITE BLOOD COUNT 12.1 K/mm3 (4.0-10.0)
[2021-01-24 09:31] LABS: BLOOD UREA NITROGEN 9.4 mg/dL (7-18); CALCIUM 8.6 mg/dL (8.5-10.1)
[2021-01-24 09:32] LABS: ALBUMIN 3.4 g/dl (3.4-5.0); MAGNESIUM 1.9 mg/dL (1.8-2.4)
[2021-01-24 09:35] LABS: CREATININE 0.6 mg/dL (0.55-1.3); PHOSPHOROUS 3.4 mg/dL (2.5-4.9)
[2021-01-24 09:36] LABS: BILIRUBIN,TOTAL 0.4 mg/dL (0.2-1)
[2021-01-24] MEDS ORDERED: PT OWN MED DRAWER 7, Y5N ONE (10:29)
[2021-01-24] MEDS: ERTAPENEM SODIUM 1 GM in SODIUM CHLORIDE 50 ML IVPB SCH (10:50)
[2021-01-24] MEDS: TAMSULOSIN HCL 0.4 MG CAP PO SCH (10:51)
[2021-01-24] MEDS: LOSARTAN POTASSIUM 50 MG TABLET PO SCH (10:51)
[2021-01-24] MEDS: ENOXAPARIN NA (PORCINE) 40 MG/0.4 ML DISP.SYRIN SQ SCH (10:51)
[2021-01-24] MEDS: amLODIPine BESYLATE 10 MG TABLET (FP) PO SCH (10:51)
[2021-01-24 14:24] VITALS: BP 110/54; PULSE 78; TEMP 99.1
== END 2021-01-24 16:04 | disposition home or self-care (01) | DRG 720 ==
LOC: JER 10:37 → JERBED 14:31 → J6S 23:00
PROVIDERS: ADMIT Internal Medicine; ATTEND Internal Medicine
PROC: 0T768DZ Dilation of Right Ureter with Intraluminal Device, Via Natural or Artificial Opening Endoscopic (ICD-10-PCS; principal; 2021-01-17 11:30)
DX: A41.51 Sepsis due to Escherichia coli [E. coli] (principal); E66.9 Obesity, unspecified; Z68.31 Body mass index [BMI] 31.0-31.9, adult; E11.65 Type 2 diabetes mellitus with hyperglycemia; I10 Essential (primary) hypertension; E78.5 Hyperlipidemia, unspecified; N10 Acute pyelonephritis; B96.1 Klebsiella pneumoniae [K. pneumoniae] as the cause of diseases classified elsewhere; N20.0 Calculus of kidney; M54.9 Dorsalgia, unspecified; D72.829 Elevated white blood cell count, unspecified
CPT/HCPCS: 36415; 71045-TC-FY; 74176-TC; 74178-TC; 76000-TC-FY; 76775-TC; 80048; 80053; 81003; 82962; 83036; 83605; 83735; 84100; 84703; 85025; 85027; 85610; 85730; 87040; 87086; 87186; 93005; 93010; 94760; 99285-25; C1887; C9803; J0131; J1644; Q9967; U0003; U0005

== ENCOUNTER 2021-05-28 11:31 | Inpatient (IN) | payer OTHER ==
[2021-05-28] MEDS ORDERED: SODIUM CHLORIDE 1,000 ML IV STA (12:35)
[2021-05-28 13:08] LABS: EOS % 0.8 % (0-4.5); HEMATOCRIT 39.5 % (32.4-45.2); HEMOGLOBIN 13.7 GM/dL (10.7-15.3); LYMPH % 40.6 % (8-40); MCH 28.9 pg (25.7-33.7); MCHC 34.6 g/dl (32.0-36.0); MEAN CELL VOLUME 83.4 fl (80-96); MEAN PLT VOLUME 8.6 fl (7.5-11.1); NEUT % 50.6 % (42.8-82.8); PLATELET COUNT 306 10^3/uL (134-434); RBC 4.73 M/mm3 (3.60-5.2); RDW 13.2 % (11.6-15.6); WHITE BLOOD COUNT 15.2 K/mm3 (4.0-10.0)
[2021-05-28 13:11] LABS: EPI CELLS 28 /uL (0-25.1); HYALINE CASTS 2 /uL (0-3.1); URINE APPEARANCE CLOUDY; URINE BACTERIA 487 /uL (0-1359); URINE BILIRUBIN NEGATIVE (NEGATIVE); URINE COLOR ORANGE; URINE GLUCOSE (UA) NEGATIVE (NEGATIVE); URINE KETONE NEGATIVE (NEGATIVE); URINE LEUK ESTERASE 3+ (NEGATIVE); URINE NITRITE NEGATIVE (NEGATIVE); URINE PROTEIN 1+ (NEGATIVE); URINE RBC 5346 /uL (0-23.9); URINE UROBILINOGEN 0.2 mg/dL (0.2-1.0); URINE WBC 528 /uL (0-25.8)
[2021-05-28 13:14] LABS: HCG,QUALITATIVE URINE Negative
[2021-05-28 13:18] LABS: INR 1.01 (0.83-1.09); PROTHROMBIN TIME (PATIENT) 12.4 SEC (9.7-13.0)
[2021-05-28 13:33] LABS: CALCIUM 8.9 mg/dL (8.5-10.1)
[2021-05-28 13:34] LABS: ALBUMIN 3.9 g/dl (3.4-5.0); BLOOD UREA NITROGEN 13.8 mg/dL (7-18)
[2021-05-28 13:37] LABS: CREATININE 0.6 mg/dL (0.55-1.3)
[2021-05-28] MEDS ORDERED: CEFTRIAXONE 1,000 MG in DEXTROSE 5%-WATER - 50 ML IVPB ONE (13:38)
[2021-05-28 13:39] LABS: BILIRUBIN,TOTAL 0.4 mg/dL (0.2-1); TOT PROT 8.1 g/dl (6.4-8.2)
[2021-05-28] MEDS ORDERED: CEFTRIAXONE 1 GM/50 ML BAG ONE (13:56)
[2021-05-28] MEDS ORDERED: ERTAPENEM SODIUM 1 GM in SODIUM CHLORIDE 50 ML IVPB ONE (16:18)
[2021-05-28] MEDS ORDERED: ERTAPENEM SODIUM 1 GM VIAL ONE (16:29)
[2021-05-28] MEDS ORDERED: SODIUM CHLORIDE 1,000 ML IV SCH (17:15)
[2021-05-28] MEDS ORDERED: ACETAMINOPHEN 1000 MG/100 ML VIAL (NON FORMULARY) IVPB PRN (19:41)
[2021-05-29 03:13] VITALS: BMI 31.7
[2021-05-29 08:46] LABS: BASO % 0.8 % (0-2.0); HEMATOCRIT 37.2 % (32.4-45.2); HEMOGLOBIN 12.8 GM/dL (10.7-15.3); LYMPH % 43.3 % (8-40); MCH 28.6 pg (25.7-33.7); MCHC 34.5 g/dl (32.0-36.0); MEAN CELL VOLUME 82.8 fl (80-96); MEAN PLT VOLUME 8.3 fl (7.5-11.1); MONO % 7.6 % (3.8-10.2); NEUT % 46.3 % (42.8-82.8); PLATELET COUNT 280 10^3/uL (134-434); RBC 4.49 M/mm3 (3.60-5.2); RDW 13.4 % (11.6-15.6); WHITE BLOOD COUNT 11.6 K/mm3 (4.0-10.0)
[2021-05-29 09:18] LABS: BLOOD UREA NITROGEN 9.4 mg/dL (7-18); CALCIUM 8.2 mg/dL (8.5-10.1)
[2021-05-29 09:22] LABS: CREATININE 0.5 mg/dL (0.55-1.3)
[2021-05-29] MEDS ORDERED: ERTAPENEM SODIUM 1 GM in SODIUM CHLORIDE 50 ML IVPB SCH (10:00)
[2021-05-29] MEDS ORDERED: LIDOCAINE HCL/PF 2% SDV 5ML VIAL ONE (14:19)
[2021-05-29] MEDS ORDERED: PROPOFOL 20 ML ONE ×2 (14:19)
[2021-05-29] MEDS ORDERED: SUCCINYLCHOLINE CHLORIDE 200 MG/10 ML SYRINGE ONE (14:19)
[2021-05-29] MEDS ORDERED: MIDAZOLAM HCL 2 MG/2 ML SINGLE DOSE VIAL ONE (14:19)
[2021-05-29] MEDS ORDERED: PROMETHAZINE HCL 25 MG/1 ML VIAL IVPUSH PRN ×2 (16:14→16:32)
[2021-05-29] MEDS ORDERED: ONDANSETRON 4 MG/2 ML VIAL IVPUSH PRN ×2 (16:14→16:32)
[2021-05-29] MEDS ORDERED: LACTATED RINGERS SOLUTION 1,000 ML IV SCH (16:15)
[2021-05-29] MEDS ORDERED: SODIUM CHLORIDE 1,000 ML IV SCH (16:32)
[2021-05-29] MEDS ORDERED: ACETAMINOPHEN 1000 MG/100 ML VIAL (NON FORMULARY) IVPB PRN (16:32)
[2021-05-29] MEDS: LACTATED RINGERS SOLUTION 1,000 ML IV SCH (18:32)
[2021-05-30] MEDS ORDERED: ACETAMINOPHEN 325 MG TABLET (FP) PO ONE (09:44)
[2021-05-30] MEDS ORDERED: PT OWN MED DRAWER 7, Y5N ONE (10:13)
[2021-05-30] MEDS: ERTAPENEM SODIUM 1 GM in SODIUM CHLORIDE 50 ML IVPB SCH (10:18)
[2021-05-30 11:09] LABS: HEMATOCRIT 38.1 % (32.4-45.2); HEMOGLOBIN 13.2 GM/dL (10.7-15.3); MCH 28.4 pg (25.7-33.7); MCHC 34.6 g/dl (32.0-36.0); MEAN CELL VOLUME 82.2 fl (80-96); MEAN PLT VOLUME 8.3 fl (7.5-11.1); PLATELET COUNT 303 10^3/uL (134-434); RBC 4.64 M/mm3 (3.60-5.2); RDW 13.1 % (11.6-15.6); WHITE BLOOD COUNT 15.3 K/mm3 (4.0-10.0)
[2021-05-30 11:35] LABS: CALCIUM 8.6 mg/dL (8.5-10.1)
[2021-05-30 11:36] LABS: BLOOD UREA NITROGEN 8.7 mg/dL (7-18)
[2021-05-30 11:39] LABS: CREATININE 0.6 mg/dL (0.55-1.3)
[2021-05-31] MEDS: LACTATED RINGERS SOLUTION 1,000 ML IV SCH (01:28)
[2021-05-31 09:12] LABS: HEMATOCRIT 36.4 % (32.4-45.2); HEMOGLOBIN 12.7 GM/dL (10.7-15.3); MCH 28.5 pg (25.7-33.7); MCHC 34.8 g/dl (32.0-36.0); MEAN CELL VOLUME 81.8 fl (80-96); MEAN PLT VOLUME 8.4 fl (7.5-11.1); PLATELET COUNT 307 10^3/uL (134-434); RBC 4.45 M/mm3 (3.60-5.2); RDW 13.4 % (11.6-15.6); WHITE BLOOD COUNT 11.5 K/mm3 (4.0-10.0)
[2021-05-31 09:39] LABS: BLOOD UREA NITROGEN 8.8 mg/dL (7-18)
[2021-05-31 09:40] LABS: CALCIUM 8.3 mg/dL (8.5-10.1)
[2021-05-31 09:42] LABS: CREATININE 0.5 mg/dL (0.55-1.3)
[2021-05-31] MEDS ORDERED: PT OWN MED DRAWER 7, Y5N ONE (10:21)
[2021-05-31] MEDS: ERTAPENEM SODIUM 1 GM in SODIUM CHLORIDE 50 ML IVPB SCH (10:43)
[2021-05-31 10:53] VITALS: BP 145/62; PULSE 64; TEMP 98.7
[2021-05-31] MEDS ORDERED: POTASSIUM CHLORIDE TABS 20 MEQ TABLET.ER (FP) PO ONE (11:30)
== END 2021-05-31 15:38 | disposition home or self-care (01) | DRG 443 ==
LOC: JER 11:31 → JERBED 16:36 → J5S 23:57
PROVIDERS: ADMIT Internal Medicine; ATTEND Internal Medicine
PROC: 0TP98DZ Removal of Intraluminal Device from Ureter, Via Natural or Artificial Opening Endoscopic (ICD-10-PCS; principal; 2021-05-29 15:30)
PROC: 0T768DZ Dilation of Right Ureter with Intraluminal Device, Via Natural or Artificial Opening Endoscopic (ICD-10-PCS; 2021-05-29 15:30)
DX: T83.592A Infection and inflammatory reaction due to indwelling ureteral stent, initial encounter (principal); N13.6 Pyonephrosis; I10 Essential (primary) hypertension; E66.9 Obesity, unspecified; Z68.31 Body mass index [BMI] 31.0-31.9, adult; E11.9 Type 2 diabetes mellitus without complications; E78.5 Hyperlipidemia, unspecified; D72.829 Elevated white blood cell count, unspecified; R31.9 Hematuria, unspecified; Y83.9 Surgical procedure, unspecified as the cause of abnormal reaction of the patient, or of later complication, without mention of misadventure at the time of the procedure
CPT/HCPCS: 36415; 74177-TC; 80048; 80053; 81003; 83605; 84703; 85025; 85027; 85610; 87040; 87086; 93005; 93010; 93306-TC; 94760; 99285-25; C9803; J0131; Q9967; U0003; U0005

== ENCOUNTER 2021-09-26 17:28 | Inpatient (IN) | payer OTHER ==
[2021-09-26 17:43] VITALS: BMI 24.9
[2021-09-26] MEDS ORDERED: SODIUM CHLORIDE 0.9% 500 ML INFUS.BAG IV ONE (18:52)
[2021-09-26 19:51] LABS: BASO % 0.3 % (0-2.0); EOS % 0.7 % (0-4.5); HEMATOCRIT 36.9 % (32.4-45.2); HEMOGLOBIN 12.1 GM/dL (10.7-15.3); LYMPH % 9.2 % (8-40); MCHC 32.9 g/dl (32.0-36.0); MEAN PLT VOLUME 8.5 fl (7.5-11.1); MONO % 6.2 % (3.8-10.2); NEUT % 83.6 % (42.8-82.8); PLATELET COUNT 219 10^3/uL (134-434); RBC 4.49 M/mm3 (3.60-5.2); RDW 14.9 % (11.6-15.6); WHITE BLOOD COUNT 9.4 K/mm3 (4.0-10.0)
[2021-09-26 20:05] LABS: BLOOD UREA NITROGEN 29.1 mg/dL (7-18); CALCIUM 8.9 mg/dL (8.5-10.1)
[2021-09-26 20:06] LABS: ALBUMIN 2.5 g/dl (3.4-5.0)
[2021-09-26 20:08] LABS: CREATININE 1.7 mg/dL (0.55-1.3)
[2021-09-26 20:10] LABS: BILIRUBIN,TOTAL 0.6 mg/dL (0.2-1); TOT PROT 7.1 g/dl (6.4-8.2)
[2021-09-26 20:18] LABS: EPI CELLS 13 /uL (0-25.1); HYALINE CASTS 6 /uL (0-3.1); URINE APPEARANCE CLOUDY; URINE BACTERIA 400 /uL (0-1359); URINE BILIRUBIN NEGATIVE (NEGATIVE); URINE COLOR DK YELLOW; URINE GLUCOSE (UA) 2+ (NEGATIVE); URINE KETONE NEGATIVE (NEGATIVE); URINE LEUK ESTERASE 2+ (NEGATIVE); URINE NITRITE NEGATIVE (NEGATIVE); URINE PROTEIN 1+ (NEGATIVE); URINE RBC 13 /uL (0-23.9); URINE WBC 487 /uL (0-25.8)
[2021-09-26] MEDS ORDERED: IBUPROFEN 600 MG TABLET (FP) PO ONE ×2 (20:18→20:56)
[2021-09-26] MEDS ORDERED: CEFTRIAXONE 1,000 MG in DEXTROSE 5%-WATER - 50 ML IVPB ONE (20:20)
[2021-09-26] MEDS ORDERED: SODIUM CHLORIDE 1,000 ML IV STA (21:23)
[2021-09-27] MEDS ORDERED: SODIUM CHLORIDE 1,000 ML IV SCH ×2 (01:00→09:32)
[2021-09-27] MEDS ORDERED: POTASSIUM CHLORIDE TABS 20 MEQ TABLET.ER (FP) PO ONE ×2 (01:03→02:11)
[2021-09-27] MEDS ORDERED: INSULIN (NOVOLOG) ASPART 100 UNITS/ML 10ML VIAL SQ ONE (01:05)
[2021-09-27] MEDS ORDERED: KCL 10 MEQ IVPB 10 MEQ/100 ML INFUS.BAG IVPB ONE ×2 (02:11→02:35)
[2021-09-27] MEDS: KCL 10 MEQ IVPB 10 MEQ/100 ML INFUS.BAG IVPB SCH ×2 (02:33→02:39)
[2021-09-27] MEDS ORDERED: ACETAMINOPHEN 325 MG TABLET (FP) PO PRN (05:14)
[2021-09-27] MEDS ORDERED: HEPARIN NA (PORCINE) 5,000 UNITS/ML 1ML VIAL ONE (05:21)
[2021-09-27] MEDS: HEPARIN NA (PORCINE) 5,000 UNITS/ML 1ML VIAL SQ SCH ×3 (05:27→21:44)
[2021-09-27] MEDS: INSULIN SLIDING SCALE (NOVOLOG) 1 VIAL SQ SCH ×4 (06:31→21:45)
[2021-09-27 08:06] LABS: MAGNESIUM 2.8 mg/dL (1.8-2.4)
[2021-09-27] MEDS ORDERED: TAMSULOSIN HCL 0.4 MG CAP ONE (08:13)
[2021-09-27] MEDS ORDERED: TAMSULOSIN HCL 0.4 MG CAP PO SCH (08:30)
[2021-09-27] MEDS ORDERED: ACETAMINOPHEN 325 MG TABLET (FP) ONE (08:35)
[2021-09-27 09:26] LABS: INR 1.26 (0.83-1.09); PROTHROMBIN TIME (PATIENT) 14.1 SEC (9.7-13.0)
[2021-09-27 09:30] LABS: BASO % 0.3 % (0-2.0); EOS % 0.1 % (0-4.5); HEMATOCRIT 34.4 % (32.4-45.2); HEMOGLOBIN 11.4 GM/dL (10.7-15.3); LYMPH % 12.2 % (8-40); MCHC 33.3 g/dl (32.0-36.0); MEAN CELL VOLUME 81.1 fl (80-96); MEAN PLT VOLUME 8.2 fl (7.5-11.1); MONO % 9.2 % (3.8-10.2); NEUT % 78.2 % (42.8-82.8); PLATELET COUNT 232 10^3/uL (134-434); RBC 4.24 M/mm3 (3.60-5.2); RDW 14.9 % (11.6-15.6); WHITE BLOOD COUNT 8.9 K/mm3 (4.0-10.0)
[2021-09-27 09:40] LABS: CHLORIDE 99 mmol/L (98-107); SODIUM 134 mmol/L (136-145)
[2021-09-27 09:43] LABS: ANION GAP 11 MMOL/L (8-16); BLOOD UREA NITROGEN 19.4 mg/dL (7-18); CO2 24 mmol/L (21-32); GLUCOSE,RANDOM 241 mg/dL (74-106)
[2021-09-27 09:46] LABS: CREATININE 1.3 mg/dL (0.55-1.3)
[2021-09-27 09:51] LABS: PHOSPHOROUS 0.8 mg/dL (2.5-4.9)
[2021-09-27] MEDS ORDERED: CEFTRIAXONE 1 GM in DEXTROSE 5%-WATER - 50 ML IVPB ONE (10:00)
[2021-09-27] MEDS ORDERED: CEFTRIAXONE 1 GM/50 ML BAG ONE (10:03)
[2021-09-27] MEDS ORDERED: POTASSIUM PHOSPHATE 30 MM in SODIUM CHLORIDE 500 ML IVPB ONE (12:00)
[2021-09-27] MEDS ORDERED: amLODIPine BESYLATE 10 MG TABLET (FP) PO SCH (12:30)
[2021-09-27] MEDS ORDERED: LOSARTAN POTASSIUM 50 MG TABLET PO SCH (12:30)
[2021-09-27] MEDS ORDERED: HYDROCHLOROTHIAZIDE 25 MG TABLET (FP) PO SCH (12:30)
[2021-09-27 13:26] LABS: ANISOCYTOSIS 2+; MACROCYTOSIS 1+; PLATELET ESTIMATE NORMAL
[2021-09-27] MEDS ORDERED: IOHEXOL 300 MG/ML INFUS..BTL IV ONE ×2 (15:12→15:27)
[2021-09-27] MEDS ORDERED: PROPOFOL 20 ML ONE ×3 (15:15→15:29)
[2021-09-27] MEDS ORDERED: MIDAZOLAM HCL 2 MG/2 ML SINGLE DOSE VIAL ONE (15:18)
[2021-09-27] MEDS ORDERED: GENTAMICIN SO4 80 MG/2 ML VIAL IVPB ONE ×2 (15:25→15:27)
[2021-09-27] MEDS ORDERED: GENTAMICIN SO4 80 MG/2 ML VIAL ONE (15:26)
[2021-09-27] MEDS ORDERED: PIPERACILLIN/TAZOB 3.375 GM 3.375 GM in DEXTROSE 5%-WATER - 50 ML IVPB ONE (16:30)
[2021-09-27] MEDS: SODIUM CHLORIDE 1,000 ML IV SCH (17:48)
[2021-09-27] MEDS: ATORVASTATIN CA 10 MG TABLET (FP) PO SCH (21:44)
[2021-09-27] MEDS: INSULIN (LEVEMIR) 100 UNITS/ML UNITS SQ SCH (21:44)
[2021-09-27] MEDS ORDERED: ATORVASTATIN CA 10 MG TABLET (FP) PO SCH (22:00)
[2021-09-27] MEDS ORDERED: INSULIN (LEVEMIR) 100 UNITS/ML UNITS SQ SCH (22:00)
[2021-09-28] MEDS ORDERED: POTASSIUM CHLORIDE TABS 10 MEQ TABLET.ER (FP) PO ONE (00:12)
[2021-09-28] MEDS: KCL 10 MEQ IVPB 10 MEQ/100 ML INFUS.BAG IVPB SCH ×3 (00:24→01:53)
[2021-09-28] MEDS ORDERED: PIPERACILLIN/TAZOBACTAM 3.375 GM VIAL IVPB ONE ×2 (00:48→09:20)
[2021-09-28] MEDS ORDERED: DEXTROSE 5%-WATER - 50 ML IVPB ONE ×2 (00:49→09:20)
[2021-09-28] MEDS: PIPERACILLIN/TAZOB 3.375 GM 3.375 GM in DEXTROSE 5%-WATER - 50 ML IVPB SCH ×2 (01:21→09:27)
[2021-09-28] MEDS: ACETAMINOPHEN 325 MG TABLET (FP) PO PRN ×3 (02:30→18:58)
[2021-09-28] MEDS: HEPARIN NA (PORCINE) 5,000 UNITS/ML 1ML VIAL SQ SCH ×3 (06:21→21:34)
[2021-09-28] MEDS: INSULIN (LEVEMIR) 100 UNITS/ML UNITS SQ SCH ×2 (06:21→21:33)
[2021-09-28] MEDS: INSULIN SLIDING SCALE (NOVOLOG) 1 VIAL SQ SCH ×4 (06:21→21:33)
[2021-09-28] MEDS: SODIUM CHLORIDE 1,000 ML IV SCH ×4 (06:29→18:47)
[2021-09-28] MEDS: TAMSULOSIN HCL 0.4 MG CAP PO SCH (09:26)
[2021-09-28] MEDS: HYDROCHLOROTHIAZIDE 25 MG TABLET (FP) PO SCH (09:27)
[2021-09-28] MEDS: LOSARTAN POTASSIUM 50 MG TABLET PO SCH (09:27)
[2021-09-28] MEDS: amLODIPine BESYLATE 10 MG TABLET (FP) PO SCH (09:27)
[2021-09-28 09:52] LABS: BASO % 0.7 % (0-2.0); EOS % 0.3 % (0-4.5); HEMATOCRIT 33.4 % (32.4-45.2); LYMPH % 19.8 % (8-40); MCH 26.9 pg (25.7-33.7); MEAN CELL VOLUME 81.6 fl (80-96); MEAN PLT VOLUME 8.2 fl (7.5-11.1); MONO % 12.9 % (3.8-10.2); NEUT % 66.3 % (42.8-82.8); PLATELET COUNT 242 10^3/uL (134-434); RBC 4.09 M/mm3 (3.60-5.2); RDW 15.3 % (11.6-15.6); WHITE BLOOD COUNT 9.8 K/mm3 (4.0-10.0)
[2021-09-28 10:19] LABS: CREATININE 0.9 mg/dL (0.55-1.3)
[2021-09-28 10:20] LABS: BLOOD UREA NITROGEN 11.7 mg/dL (7-18); CALCIUM 7.5 mg/dL (8.5-10.1)
[2021-09-28 10:21] LABS: BILIRUBIN,TOTAL 0.6 mg/dL (0.2-1); TOT PROT 5.9 g/dl (6.4-8.2)
[2021-09-28 10:54] LABS: ALBUMIN 1.9 g/dl (3.4-5.0)
[2021-09-28] MEDS ORDERED: MEROPENEM 1 GM VIAL (RESTRICTED TO ID) IVPB ONE ×2 (13:58→17:28)
[2021-09-28] MEDS ORDERED: DEXTROSE 5%-WATER 100 ML IVPB ONE ×2 (13:58→17:28)
[2021-09-28] MEDS: MEROPENEM 1 GM in DEXTROSE 5%-WATER 100 ML IVPB SCH ×2 (14:00→17:31)
[2021-09-28] MEDS ORDERED: MEROPENEM 1 GM in DEXTROSE 5%-WATER 100 ML IVPB SCH (18:00)
[2021-09-28] MEDS ORDERED: POTASSIUM CHLORIDE TABS 20 MEQ TABLET.ER (FP) PO ONE (18:25)
[2021-09-28] MEDS: ATORVASTATIN CA 10 MG TABLET (FP) PO SCH (21:34)
[2021-09-29] MEDS ORDERED: DEXTROSE 5%-WATER 100 ML IVPB ONE ×4 (02:56→17:22)
[2021-09-29] MEDS ORDERED: MEROPENEM 1 GM VIAL (RESTRICTED TO ID) IVPB ONE ×4 (02:56→17:22)
[2021-09-29] MEDS: MEROPENEM 1 GM in DEXTROSE 5%-WATER 100 ML IVPB SCH ×4 (03:00→17:31)
[2021-09-29] MEDS: HEPARIN NA (PORCINE) 5,000 UNITS/ML 1ML VIAL SQ SCH ×3 (06:09→22:32)
[2021-09-29] MEDS: INSULIN (LEVEMIR) 100 UNITS/ML UNITS SQ SCH ×2 (06:12→22:30)
[2021-09-29] MEDS: INSULIN SLIDING SCALE (NOVOLOG) 1 VIAL SQ SCH ×4 (06:13→22:31)
[2021-09-29] MEDS: ACETAMINOPHEN 325 MG TABLET (FP) PO PRN (06:17)
[2021-09-29 08:59] LABS: ALBUMIN 2.2 g/dl (3.4-5.0); BLOOD UREA NITROGEN 11.8 mg/dL (7-18); CALCIUM 7.5 mg/dL (8.5-10.1)
[2021-09-29 09:03] LABS: TOT PROT 6.5 g/dl (6.4-8.2)
[2021-09-29 09:04] LABS: BILIRUBIN,TOTAL 0.4 mg/dL (0.2-1)
[2021-09-29] MEDS: HYDROCHLOROTHIAZIDE 25 MG TABLET (FP) PO SCH (09:31)
[2021-09-29] MEDS: amLODIPine BESYLATE 10 MG TABLET (FP) PO SCH (09:31)
[2021-09-29] MEDS: TAMSULOSIN HCL 0.4 MG CAP PO SCH (09:31)
[2021-09-29] MEDS: LOSARTAN POTASSIUM 50 MG TABLET PO SCH (09:32)
[2021-09-29] MEDS: INSULIN (NOVOLOG) ASPART 100 UNITS/ML 10ML VIAL SQ SCH (17:31)
[2021-09-29] MEDS: ATORVASTATIN CA 10 MG TABLET (FP) PO SCH (22:28)
[2021-09-30] MEDS ORDERED: MEROPENEM 1 GM VIAL (RESTRICTED TO ID) IVPB ONE ×3 (03:07→17:19)
[2021-09-30] MEDS ORDERED: DEXTROSE 5%-WATER 100 ML IVPB ONE ×3 (03:07→17:19)
[2021-09-30] MEDS: MEROPENEM 1 GM in DEXTROSE 5%-WATER 100 ML IVPB SCH ×3 (03:11→17:31)
[2021-09-30] MEDS: SODIUM CHLORIDE 1,000 ML IV SCH ×2 (03:14→22:59)
[2021-09-30] MEDS: INSULIN SLIDING SCALE (NOVOLOG) 1 VIAL SQ SCH ×4 (06:56→23:10)
[2021-09-30] MEDS: INSULIN (NOVOLOG) ASPART 100 UNITS/ML 10ML VIAL SQ SCH ×3 (06:57→17:30)
[2021-09-30] MEDS: HEPARIN NA (PORCINE) 5,000 UNITS/ML 1ML VIAL SQ SCH ×3 (06:58→23:06)
[2021-09-30] MEDS: INSULIN (LEVEMIR) 100 UNITS/ML UNITS SQ SCH ×2 (07:01→23:07)
[2021-09-30 09:06] LABS: BASO % 0.6 % (0-2.0); EOS % 1.9 % (0-4.5); HEMATOCRIT 34.7 % (32.4-45.2); HEMOGLOBIN 11.4 GM/dL (10.7-15.3); LYMPH % 30.5 % (8-40); MCH 26.6 pg (25.7-33.7); MEAN CELL VOLUME 80.6 fl (80-96); MEAN PLT VOLUME 7.5 fl (7.5-11.1); MONO % 8.5 % (3.8-10.2); NEUT % 58.5 % (42.8-82.8); PLATELET COUNT 404 10^3/uL (134-434); RBC 4.31 M/mm3 (3.60-5.2); RDW 15.1 % (11.6-15.6); WHITE BLOOD COUNT 8.9 K/mm3 (4.0-10.0)
[2021-09-30] MEDS: TAMSULOSIN HCL 0.4 MG CAP PO SCH (09:25)
[2021-09-30 09:50] LABS: BLOOD UREA NITROGEN 11.4 mg/dL (7-18); CALCIUM 8.2 mg/dL (8.5-10.1)
[2021-09-30 09:54] LABS: CREATININE 0.7 mg/dL (0.55-1.3)
[2021-09-30] MEDS ORDERED: POTASSIUM CHLORIDE TABS 20 MEQ TABLET.ER (FP) PO ONE (10:15)
[2021-09-30] MEDS: HYDROCHLOROTHIAZIDE 25 MG TABLET (FP) PO SCH (10:52)
[2021-09-30] MEDS: LOSARTAN POTASSIUM 50 MG TABLET PO SCH (10:52)
[2021-09-30] MEDS: amLODIPine BESYLATE 10 MG TABLET (FP) PO SCH (10:52)
[2021-09-30] MEDS ORDERED: INSULIN (NOVOLOG) ASPART 100 UNITS/ML 10ML VIAL ONE (12:10)
[2021-09-30] MEDS: ATORVASTATIN CA 10 MG TABLET (FP) PO SCH (23:02)
[2021-10-01] MEDS ORDERED: MEROPENEM 1 GM VIAL (RESTRICTED TO ID) IVPB ONE ×2 (02:39→11:51)
[2021-10-01] MEDS ORDERED: DEXTROSE 5%-WATER 100 ML IVPB ONE ×2 (02:39→11:51)
[2021-10-01] MEDS: MEROPENEM 1 GM in DEXTROSE 5%-WATER 100 ML IVPB SCH ×2 (02:46→11:59)
[2021-10-01] MEDS: HEPARIN NA (PORCINE) 5,000 UNITS/ML 1ML VIAL SQ SCH ×2 (06:41→15:48)
[2021-10-01] MEDS: INSULIN SLIDING SCALE (NOVOLOG) 1 VIAL SQ SCH ×2 (06:43→15:48)
[2021-10-01] MEDS: INSULIN (NOVOLOG) ASPART 100 UNITS/ML 10ML VIAL SQ SCH ×2 (06:43→15:47)
[2021-10-01] MEDS: INSULIN (LEVEMIR) 100 UNITS/ML UNITS SQ SCH (06:45)
[2021-10-01 08:01] LABS: HEMATOCRIT 35.1 % (32.4-45.2); HEMOGLOBIN 11.6 GM/dL (10.7-15.3); MCH 26.9 pg (25.7-33.7); MEAN CELL VOLUME 81.4 fl (80-96); MEAN PLT VOLUME 7.5 fl (7.5-11.1); PLATELET COUNT 495 10^3/uL (134-434); RBC 4.32 M/mm3 (3.60-5.2); RDW 14.9 % (11.6-15.6); WHITE BLOOD COUNT 10.2 K/mm3 (4.0-10.0)
[2021-10-01 09:14] LABS: ALBUMIN 2.4 g/dl (3.4-5.0); BILIRUBIN,TOTAL 0.7 mg/dL (0.2-1); BLOOD UREA NITROGEN 9.2 mg/dL (7-18); CALCIUM 8.1 mg/dL (8.5-10.1); CREATININE 0.6 mg/dL (0.55-1.3); TOT PROT 7.1 g/dl (6.4-8.2)
[2021-10-01] MEDS: HYDROCHLOROTHIAZIDE 25 MG TABLET (FP) PO SCH (11:58)
[2021-10-01] MEDS: LOSARTAN POTASSIUM 50 MG TABLET PO SCH (11:58)
[2021-10-01] MEDS: TAMSULOSIN HCL 0.4 MG CAP PO SCH (11:58)
[2021-10-01] MEDS: amLODIPine BESYLATE 10 MG TABLET (FP) PO SCH (11:59)
[2021-10-01] MEDS ORDERED: ERTAPENEM SODIUM 1 GM in SODIUM CHLORIDE 50 ML IVPB ONE (15:45)
[2021-10-01 15:54] VITALS: BP 119/60; PULSE 81; TEMP 98.6
[2021-10-01] MEDS ORDERED: SODIUM CHLORIDE 50 ML IVPB ONE (15:56)
[2021-10-01] MEDS ORDERED: ERTAPENEM SODIUM 1 GM VIAL ONE (15:56)
== END 2021-10-01 18:15 | disposition home or self-care (01) | DRG 720 ==
LOC: JERFT 17:28 → JERBED 22:21 → J6S 09-27 17:33 → J7W 09-29 00:19
PROVIDERS: ADMIT Internal Medicine; ATTEND Internal Medicine
PROC: 02HV33Z Insertion of Infusion Device into Superior Vena Cava, Percutaneous Approach (ICD-10-PCS; principal; 2021-10-01)
PROC: B518ZZA Fluoroscopy of Superior Vena Cava, Guidance (ICD-10-PCS; 2021-10-01)
PROC: 0T768DZ Dilation of Right Ureter with Intraluminal Device, Via Natural or Artificial Opening Endoscopic (ICD-10-PCS; 2021-10-01)
DX: A41.51 Sepsis due to Escherichia coli [E. coli] (principal); N17.9 Acute kidney failure, unspecified; E87.1 Hypo-osmolality and hyponatremia; J98.11 Atelectasis; N13.6 Pyonephrosis; I10 Essential (primary) hypertension; E87.6 Hypokalemia; E11.65 Type 2 diabetes mellitus with hyperglycemia; E66.9 Obesity, unspecified; Z68.24 Body mass index [BMI] 24.0-24.9, adult
CPT/HCPCS: 36415; 36569; 71046-TC-FY; 74176-TC; 76000-TC-FY; 76775-TC; 77001-TC-FY; 80048; 80053; 81003; 82962; 83036; 83735; 84100; 84703; 85025; 85027; 85610; 87040; 87086; 87186; 94760; 99285-25; C1751; C9803; J1644; U0003; U0005